=== PATIENT | female | born 2000 | race Caucasian/White ===

== ENCOUNTER 2024-01-31 20:52 | Emergency (ER) | payer BC, OTHER ==
[2024-01-31] MEDS: Lidocaine 1% 10 ML MDV INJECT ONE (21:40)
== END 2024-01-31 22:10 | disposition home or self-care (01) ==
LOC: JD.ED 20:52
DX: S01.111A Laceration without foreign body of right eyelid and periocular area, initial encounter (principal); Z79.899 Other long term (current) drug therapy; W21.07XA Struck by softball, initial encounter; Y93.64 Activity, baseball
CPT/HCPCS: 12011; 99282; 99283; J3490